=== PATIENT | female | born 1945 | race Caucasian/White ===

== ENCOUNTER 2020-11-26 07:39 | Emergency (ER) | payer SELFPAY ==
[~2020-11-26] VITALS: Ht 157.5 cm; Wt 86.4 kg
[2020-11-26 07:46] VITALS: Ht 157.5 cm; Wt 86.4 kg
[2020-11-26] MEDS ORDERED: NAPROSYN500 MG PO (08:30)
[2020-11-26] MEDS ORDERED: CYCLOBENZAPRINE10 MG PO (08:30)
[2020-11-26] MEDS ORDERED: ACETAMINOPHEN500 M1 PO (08:30)
[2020-11-26 08:51] VITALS: BP 174/88
== END 2020-11-26 09:11 | disposition home or self-care (01) ==
LOC: D.ER 07:39
DX: M25.561 Pain in right knee (principal); S80.01XA Contusion of right knee, initial encounter; M79.10 Myalgia, unspecified site; W19.XXXA Unspecified fall, initial encounter; Y93.9 Activity, unspecified; Y92.9 Unspecified place or not applicable

== ENCOUNTER → 2021-02-23 10:27 | Outpatient (CLI) | payer MEDICARE, OTHER ==
[2020-11-26 07:46] VITALS: BMI 34.8
[~2021-02-23 10:27] MED LIST: ACETAMINOPHEN500 M1 PO; CYCLOBENZAPRINE10 MG PO; NAPROSYN500 MG PO
== END | disposition home or self-care (01) ==
LOC: D.MRI 10:27
PROVIDERS: ATTEND Nurse Practitioner Family
DX: M54.16 Radiculopathy, lumbar region (principal)

== ENCOUNTER → 2021-03-06 13:08 | Outpatient (CLI) | payer MEDICARE, OTHER ==
[2020-11-26 07:46] VITALS: BMI 34.8
== END | disposition home or self-care (01) ==
LOC: D.US 13:08
PROVIDERS: ATTEND Nurse Practitioner Family
DX: R93.89 Abnormal findings on diagnostic imaging of other specified body structures (principal)